=== PATIENT | female | born 1935 | race Caucasian/White ===

== ENCOUNTER 2020-09-10 20:56 | Emergency (ER) | payer MEDICARE, MEDICAID ==
[~2020-09-10] VITALS: Ht 160 cm; Wt 81.8 kg
[~2020-09-10 20:56] MED LIST: AMLO-257 PO; ASPI-1444 PO; BACTDSB PO; FISH1 PO; FURO20 PO; HYDR50TA36 PO; ISOS10TA16 PO; LACT1CAP70 PO; LOSA25TA21 PO; METF-960 PO; MULT-1387 PO; OMEP20 PO
[2020-09-10 21:13] LABS: GLUCOSE,POINT OF CARE 179 MG/DL (70-110)
[2020-09-10] MEDS ORDERED: HydrALAZINE HCL 20 MG/ML VIAL IVP ONE (22:15)
[2020-09-10 23:03] LABS: BASOPHILS % (AUTO) 0.4 % (0.0-2.0); EOSINOPHILS % (AUTO) 3.2 % (1.0-6.0); HEMATOCRIT 33.7 % (36-46); HEMOGLOBIN 10.9 g/dL (12.0-16.0); LYMPHOCYTES % (AUTO) 14.6 % (22.0-44.0); MEAN CORPUSCULAR HEMOGLOBIN 29.2 pg (26.0-34.0); MEAN CORPUSCULAR HGB CONC 32.3 G/dL (31.0-37.0); MEAN CORPUSCULAR VOLUME 90 fL (80-100); MONOCYTES # (AUTO) 0.6 K/uL (0.1-1.0); MONOCYTES % (AUTO) 8.5 % (2.0-9.0); NEUTROPHILS # (AUTO) 5.2 K/uL (1.8-7.7); NEUTROPHILS % (AUTO) 73.3 % (40.0-70.0); PLATELET COUNT (AUTO) 266 K/uL (150-450); RED BLOOD CELL COUNT(AUTO) 3.73 MIL/uL (4.00-5.20); RED CELL DISTRIBUTION WIDTH 15.4 % (11.5-14.5)
[2020-09-10 23:14] LABS: COVID AG,FIA SOURCE NASOPHARYNGEAL
[2020-09-10 23:15] LABS: ANION GAP 8 mmol/L (8-16); CALCIUM, TOTAL 9.2 mg/dL (8.8-10.5); CARBON DIOXIDE 28 mmol/L (22-29); CHLORIDE 99 mmol/L (98-107); GLUCOSE,RANDOM 149 mg/dL (70-110); POTASSIUM 4.4 mmol/L (3.5-5.1); SODIUM SERUM 135 mmol/L (136-145); UREA NITROGEN, BLOOD 9 mg/dL (7-18)
[2020-09-10 23:16] LABS: GLOMERULAR FILTR. RATE CALC > 60 mL/min (>60)
[2020-09-10 23:18] LABS: PROTHROMBIN TIME 10.9 SEC (9.4-11.6)
[2020-09-10 23:21] LABS: ALANINE AMINOTRANSFERASE 26 U/L (12-78); ALBUMIN 3.4 g/dL (3.4-5.0); ALKALINE PHOSPHATASE 103 U/L (46-116); ASPARTATE AMINOTRANSFERASE 19 U/L (15-37); BILIRUBIN,TOTAL 0.3 mg/dL (0.1-1.0); CREATINE KINASE, TOTAL ONLY 61 U/L (26-192); TOTAL PROTEIN, SERUM 7.5 g/dL (6.4-8.2)
[2020-09-10 23:24] LABS: B-TYPE NATRIURETIC PEPTIDE 408 pg/mL (0-100)
[2020-09-11 00:15] VITALS: BP 143/64
== END 2020-09-11 00:33 | disposition home or self-care (01) ==
LOC: EMS 20:56
DX: I11.0 Hypertensive heart disease with heart failure (principal); I50.9 Heart failure, unspecified; I10 Essential (primary) hypertension; E78.00 Pure hypercholesterolemia, unspecified; Z20.822 Contact with and (suspected) exposure to COVID-19
CPT/HCPCS: 71045; 80053; 82550; 82962; 83880; 84484; 85025; 85610; 85730; 87426; 93005; 96374; 99285; J0360